=== PATIENT | female | born 1955 | race Caucasian/White ===

== ENCOUNTER 2020-08-25 10:10 | Emergency (ER) | payer MEDICARE, MEDICAID ==
[~2020-08-25] VITALS: Ht 175.3 cm; Wt 77.9 kg
--- NOTE | 2020-08-25 10:37 | NUR ---
former drinker, 6 beers a day. quit 2 weeks ago. no blood in urine this am drinking h2o. unable to get ua
--- NOTE | 2020-08-25 10:59 | NUR ---
pt down to ct
[2020-08-25 11:17] LABS: ALBUMIN 3.9 g/dL (3.4-5.0); ANION GAP 7 mmol/L (5-15); CALCIUM 9.6 mg/dL (8.5-10.1); CHLORIDE 104 mmol/L (98-107); CREATININE 0.83 mg/dL (0.55-1.02)
[2020-08-25 11:19] LABS: BASOPHILS % (AUTO) 1 % (0-1); EOSINOPHILS % (AUTO) 2 % (1-7); LYMPHOCYTES % (AUTO) 26 % (22-44); MEAN CORPUSCULAR HEMOGLOBIN 34.5 pg (27.0-34.8); MEAN PLATELET VOLUME 8.8 fL (7.4-10.4); MONOCYTES % (AUTO) 8 % (2-9); NEUTROPHILS % (AUTO) 64 % (42-75); PLATELET COUNT 156 x10^3/uL (130-400); RED BLOOD COUNT 4.61 x10^6/uL (3.82-5.3); RED CELL DISTRIBUTION WIDTH 13.2 % (9.6-15.2)
[2020-08-25 11:22] LABS: MD NO
--- NOTE | 2020-08-25 12:10 | NUR ---
pt in bed ua sent.
[2020-08-25 12:52] LABS: MICROSCOPIC AUTO
[2020-08-25 13:03] VITALS: BP 167/95
--- NOTE | 2020-08-25 13:04 | NUR ---
pt in bed page to urology
== END 2020-08-25 13:58 | disposition home or self-care (01) ==
LOC: ED 12:54
DX: R31.0 Gross hematuria (principal); I10 Essential (primary) hypertension
CPT/HCPCS: 36415; 74176; 80048; 81001; 82040; 85025; 93005; 99285

== ENCOUNTER 2020-09-22 10:35 | Outpatient (CLI) | payer MEDICARE, MEDICAID ==
[2020-09-22] MEDS ORDERED: LOSA50TA14 PO (11:32)
[2020-09-22] MEDS ORDERED: AMLO-150 PO (11:32)
[2020-09-22] MEDS ORDERED: B CO1TAB14 PO (11:32)
[2020-09-22] MEDS ORDERED: [UNRECOGNIZED DRUG - OTHER] PO (11:32)
[2020-09-22] MEDS ORDERED: CALC1CAP8 PO (11:32)
[2020-09-22] MEDS ORDERED: FIBER (11:32)
[2020-09-22 12:11] LABS: BASOPHILS % (AUTO) 1 % (0-1); EOSINOPHILS % (AUTO) 2 % (1-7); LYMPHOCYTES % (AUTO) 31 % (22-44); MEAN CORPUSCULAR HEMOGLOBIN 32.9 pg (27.0-34.8); MEAN PLATELET VOLUME 9.4 fL (7.4-10.4); MONOCYTES % (AUTO) 8 % (2-9); NEUTROPHILS % (AUTO) 58 % (42-75); PLATELET COUNT 161 x10^3/uL (130-400); RED BLOOD COUNT 4.64 x10^6/uL (3.82-5.3); RED CELL DISTRIBUTION WIDTH 12.7 % (9.6-15.2)
[2020-09-22 12:12] LABS: MD NO
[2020-09-22 12:24] LABS: INTERNATIONAL NORMALIZED RATIO 1.01 (0.93-1.1); PROTHROMBIN TIME 10.8 Seconds (9.6-11.5)
[2020-09-22 12:28] LABS: ALANINE AMINOTRANSFERASE 38 U/L (12-78); ALBUMIN 3.8 g/dL (3.4-5.0); ANION GAP 4 mmol/L (5-15); CALCIUM 9.8 mg/dL (8.5-10.1); CHLORIDE 108 mmol/L (98-107)
[2020-09-22 12:30] LABS: ALKALINE PHOSPHATASE 96 U/L (45-117); BILIRUBIN,TOTAL 0.9 mg/dL (0.2-1.0); CREATININE 0.74 mg/dL (0.55-1.02); TOTAL PROTEIN 8.3 g/dL (6.4-8.2)
[2020-09-22 12:44] LABS: MICROSCOPIC INDICATED
== END 2020-09-22 23:59 | disposition home or self-care (01) ==
LOC: STAR 10:35
PROVIDERS: ATTEND Urology
DX: Z01.812 Encounter for preprocedural laboratory examination (principal); Z20.822 Contact with and (suspected) exposure to COVID-19; N32.89 Other specified disorders of bladder
CPT/HCPCS: 36415; 80053; 81001; 85025; 85610; 87086; 93005; U0003

== ENCOUNTER 2020-09-28 14:29 | Observation (INO) | payer MEDICARE, MEDICAID ==
[~2020-09-28] VITALS: Ht 175.3 cm; Wt 83.0 kg
[~2020-09-28 14:29] MED LIST: AMLO-150 PO; B CO1TAB14 PO; CALC1CAP8 PO; FIBER; LOSA50TA14 PO; [UNRECOGNIZED DRUG - OTHER] PO
[2020-09-28] MEDS ORDERED: CHLORHEXIDINE 15 ML UDC ONE (14:59)
[2020-09-28] MEDS ORDERED: CHLORHEXIDINE 15 ML UDC PO ONE (15:00)
[2020-09-28] MEDS: LACTATED RINGERS 1,000 ML IV SCH (15:06)
[2020-09-28] MEDS ORDERED: FENTANYL PF 100 MCG/2ML ONE ×4 (15:56→21:20)
[2020-09-28] MEDS ORDERED: MIDAZOLAM 1 MG/ML, 2ML ONE (15:56)
[2020-09-28] MEDS ORDERED: OXYcodone 5 MG/5 ML ORAL.SOL UDC PO PRN ×2 (16:00→22:30)
[2020-09-28] MEDS ORDERED: PROMETHAZINE 25 MG/ML, 1ML IVPush PRN ×2 (16:00→22:30)
[2020-09-28] MEDS ORDERED: HYDROcodone/APAP 7.5-325MG/15ML UDC PO PRN (16:00)
[2020-09-28] MEDS ORDERED: ONDANSETRON 2MG/ML, 2ML IVPush PRN ×2 (16:00→22:30)
[2020-09-28] MEDS ORDERED: MEPERIDINE/PF 25MG/0.5ML IVPush PRN ×2 (16:00→22:30)
[2020-09-28] MEDS ORDERED: HYDROmorphone 1 MG/ML, 1ML INJ IVPush PRN ×2 (16:00→22:30)
[2020-09-28] MEDS ORDERED: GEMCITABINE HCL 1,000 MG in SODIUM CHLORIDE 0.9% 23.7 ML IS ONE (16:30)
[2020-09-28] MEDS ORDERED: METHYLENE BLUE 50 MG/10 ML AMP ONE (16:55)
[2020-09-28] MEDS ORDERED: FUROSEMIDE 20 MG/2 ML ONE (17:06)
[2020-09-28] MEDS ORDERED: OPIUM/BELLADONNA SUPP.RECT 16.2-30 MG ONE (17:36)
[2020-09-28] MEDS ORDERED: PHENAZOPYRIDINE 200 MG TABLET ONE (17:36)
[2020-09-28] MEDS: FENTANYL PF 100 MCG/2ML IV PRN ×5 (17:45→18:35)
[2020-09-28] MEDS ORDERED: OPIUM/BELLADONNA SUPP.RECT 16.2-30 MG PR ONE (18:00)
[2020-09-28] MEDS ORDERED: PHENAZOPYRIDINE 200 MG TABLET PO ONE (18:00)
[2020-09-28] MEDS ORDERED: LOSARTAN 50MG TABLET PO SCH (21:00)
[2020-09-28] MEDS ORDERED: ONDANSETRON 2MG/ML, 2ML ONE (21:18)
[2020-09-28] MEDS ORDERED: CEFAZOLIN 1,000 MG ONE (21:18)
[2020-09-28] MEDS ORDERED: DEXAMETHASONE 4 MG/ML, 1ML ONE (21:18)
[2020-09-28] MEDS ORDERED: PROPOFOL 10 MG/ML, 20ML ONE ×2 (21:18)
[2020-09-28] MEDS ORDERED: PHENYLEPHRINE 10 MG/ML ONE (21:18)
[2020-09-28] MEDS ORDERED: EPHEDRINE 50 MG/ML, 1ML IVPush PRN (22:30)
[2020-09-28] MEDS ORDERED: LORazepam 2 MG/ML, 1ML IVPush PRN (22:30)
[2020-09-28] MEDS ORDERED: FENTANYL PF 100 MCG/2ML IV PRN (22:30)
[2020-09-28] MEDS ORDERED: ACETAMINOPHEN 325 MG TABLET PO PRN (22:30)
[2020-09-28] MEDS ORDERED: EPHEDRINE 50 MG/ML, 1ML IM PRN (22:30)
[2020-09-28] MEDS ORDERED: hydrALAzine 20 MG/ML, 1ML IV PRN (22:30)
[2020-09-28] MEDS ORDERED: LABETALOL 5MG/ML, 20ML IV PRN (22:30)
[2020-09-28] MEDS ORDERED: METHOCARBAMOL 1,000 MG in DEXTROSE 5% 100 ML IV PRN (22:30)
[2020-09-28] MEDS ORDERED: OPIUM/BELLADONNA SUPP.RECT 16.2-30 MG PR PRN (23:45)
[2020-09-28] MEDS ORDERED: morphine SULFATE 10 MG/ML, 1ML IV PRN (23:45)
[2020-09-28] MEDS ORDERED: D5%-LACTATED RINGERS 1,000 ML IV SCH (23:45)
[2020-09-28] MEDS ORDERED: ONDANSETRON 2MG/ML, 2ML IV PRN (23:45)
[2020-09-29 00:04] VITALS: BP 136/87
[2020-09-29] MEDS: LACTATED RINGERS 1,000 ML IV SCH ×4 (00:15→14:09)
[2020-09-29 03:48] VITALS: BP 113/76
[2020-09-29 07:19] VITALS: BP 113/70
[2020-09-29] MEDS ORDERED: AMLODIPINE 5 MG TABLET PO SCH (09:00)
[2020-09-29] MEDS ORDERED: NALOXONE 0.4 MG/ML, 1ML ONE (10:17)
== END 2020-09-29 15:22 | disposition home or self-care (01) ==
LOC: OR 14:29 → ORIP 23:16 → 4NE 23:26 → DCLOUNGE 09-29 15:08
PROVIDERS: ADMIT Urology; ATTEND Urology
DX: D49.4 Neoplasm of unspecified behavior of bladder (principal); N32.89 Other specified disorders of bladder; N99.820 Postprocedural hemorrhage of a genitourinary system organ or structure following a genitourinary system procedure; I10 Essential (primary) hypertension; Z87.891 Personal history of nicotine dependence; Z79.899 Other long term (current) drug therapy
CPT/HCPCS: 52001; 52235; 52250; 88307; 96361; 96374; G0378; J0690; J1100; J1940; J2250; J2270; J2370; J2405; J2704; J3010; J7120; Q9968

== ENCOUNTER → 2020-10-30 | Outpatient (CLI) | payer MEDICARE, MEDICAID ==
[2020-10-30 09:42] LABS: BASOPHILS % (AUTO) 1 % (0-1); EOSINOPHILS % (AUTO) 2 % (1-7); LYMPHOCYTES % (AUTO) 31 % (22-44); MEAN CORPUSCULAR HGB CONC 34.2 g/dL (32.4-35.8); MEAN PLATELET VOLUME 8.3 fL (7.4-10.4); MONOCYTES % (AUTO) 10 % (2-9); NEUTROPHILS % (AUTO) 58 % (42-75); PLATELET COUNT 137 x10^3/uL (130-400); RED BLOOD COUNT 4.37 x10^6/uL (3.82-5.3); RED CELL DISTRIBUTION WIDTH 13.8 % (9.6-15.2)
[2020-10-30 09:43] LABS: MICROSCOPIC INDICATED
[2020-10-30 09:48] LABS: INTERNATIONAL NORMALIZED RATIO 1.02 (0.93-1.1); MD NO; PROTHROMBIN TIME 10.9 Seconds (9.6-11.5)
[2020-10-30 09:49] LABS: ALBUMIN 4.1 g/dL (3.4-5.0); ANION GAP 3 mmol/L (5-15); CALCIUM 9.5 mg/dL (8.5-10.1); CHLORIDE 104 mmol/L (98-107)
[2020-10-30 09:53] LABS: ALANINE AMINOTRANSFERASE 26 U/L (12-78); ALKALINE PHOSPHATASE 78 U/L (45-117); BILIRUBIN,TOTAL 1.1 mg/dL (0.2-1.0); CREATININE 0.75 mg/dL (0.55-1.02); TOTAL PROTEIN 8.4 g/dL (6.4-8.2)
== END | disposition home or self-care (01) ==
LOC: STAR 08:20
PROVIDERS: ATTEND Urology
DX: Z01.818 Encounter for other preprocedural examination (principal); C67.9 Malignant neoplasm of bladder, unspecified; Z20.822 Contact with and (suspected) exposure to COVID-19
CPT/HCPCS: 36415; 80053; 81001; 85025; 85610; 87086; 93005; U0003; U0005

== ENCOUNTER 2020-11-03 10:32 | Day surgery (SDC) | payer MEDICARE, MEDICAID ==
[~2020-11-03] VITALS: Ht 175.3 cm; Wt 78.0 kg
[~2020-11-03 10:32] MED LIST changes: +ACETAMINOPHEN 325 MG TABLET PO PRN; +DIAZEPAM 5 MG/ML, 2ML IVPush PRN; +DIPHENHYDRAMINE 50 MG/ML, 1ML IVPush PRN; +EPHEDRINE 50 MG/ML, 1ML IVPush PRN; +FENTANYL PF 100 MCG/2ML IV PRN; +HALOPERIDOL 5 MG/ML IV PRN; +HYDROmorphone 1 MG/ML, 1ML INJ IVPush PRN; +LABETALOL 5MG/ML, 20ML IV PRN; +MEPERIDINE/PF 25MG/0.5ML IVPush PRN; +METOCLOPRAMIDE 5 MG/ML, 2ML IVPush PRN; +METOPROLOL 1 MG/ML, 5ML IV PRN; +MIDAZOLAM 1 MG/ML, 2ML IV PRN; +ONDANSETRON 2MG/ML, 2ML IVPush PRN; +OXYcodone 5 MG/5 ML ORAL.SOL UDC PO PRN; +PROMETHAZINE 25 MG/ML, 1ML IVPush PRN; +hydrALAzine 20 MG/ML, 1ML IV PRN
[2020-11-03 10:58] VITALS: BP 129/89
[2020-11-03] MEDS ORDERED: CHLORHEXIDINE 15 ML UDC ONE (11:11)
[2020-11-03] MEDS ORDERED: CHLORHEXIDINE 15 ML UDC PO ONE (11:30)
[2020-11-03] MEDS ORDERED: LACTATED RINGERS 1,000 ML IV SCH (11:30)
[2020-11-03] MEDS ORDERED: FENTANYL PF 100 MCG/2ML ONE (11:57)
[2020-11-03] MEDS ORDERED: OPIUM/BELLADONNA SUPP.RECT 16.2-30 MG ONE (12:39)
[2020-11-03] MEDS ORDERED: DEXAMETHASONE 4 MG/ML, 1ML ONE (12:44)
[2020-11-03] MEDS ORDERED: PROPOFOL 10 MG/ML, 20ML ONE (12:44)
[2020-11-03] MEDS ORDERED: ONDANSETRON 2MG/ML, 2ML ONE (12:44)
[2020-11-03] MEDS ORDERED: FLUORESCEIN SODIUM 500 MG/5 ML ONE (13:05)
[2020-11-03] MEDS ORDERED: PHENAZOPYRIDINE 200 MG TABLET ONE (13:49)
[2020-11-03] MEDS ORDERED: PHENAZOPYRIDINE 200 MG TABLET PO ONE (14:00)
== END 2020-11-03 15:10 | disposition home or self-care (01) ==
LOC: OUT 10:32
PROVIDERS: ATTEND Urology
DX: C67.4 Malignant neoplasm of posterior wall of bladder (principal); I10 Essential (primary) hypertension; Z79.899 Other long term (current) drug therapy; Z87.891 Personal history of nicotine dependence
CPT/HCPCS: 52005; 52204; 74420; 88307; C1758; J1100; J2405; J2704; J3010; J7120; Q9967; 76000